=== PATIENT | female | born 1950 | race Caucasian/White ===

== ENCOUNTER 2021-05-12 15:18 | Outpatient (CLI) | payer MEDICARE ==
[~2021-05-12 15:18] MED LIST: BUDE10.2 INH; MONT10TA6 PO; TEMA30CA PO
[2021-05-12] MEDS ORDERED: TAMSULOSIN PO (16:01)
[2021-05-12] MEDS ORDERED: LEVO75TA5 PO (16:01)
[2021-05-12] MEDS ORDERED: ALBU18HF INH (16:01)
[2021-05-12] MEDS ORDERED: BUDE90AE INH (16:01)
[2021-05-12] MEDS ORDERED: SODI1PAC NAS (16:01)
== END 2021-05-12 23:59 | disposition home or self-care (01) ==
LOC: STAR 15:18
PROVIDERS: ATTEND Otolaryngology
DX: Z01.818 Encounter for other preprocedural examination (principal); J32.0 Chronic maxillary sinusitis
CPT/HCPCS: 93005

== ENCOUNTER 2021-05-19 05:49 | Day surgery (SDC) | payer MEDICARE ==
[~2021-05-19] VITALS: Ht 162.6 cm; Wt 54.8 kg
[~2021-05-19 05:49] MED LIST changes: +ALBU18HF INH; +BUDE90AE INH; +LEVO75TA5 PO; +SODI1PAC NAS; +TAMSULOSIN PO
[2021-05-19 06:15] VITALS: BP 109/74
[2021-05-19] MEDS ORDERED: CHLORHEXIDINE 15 ML UDC ONE (06:22)
[2021-05-19] MEDS ORDERED: CHLORHEXIDINE 15 ML UDC PO ONE (06:30)
[2021-05-19] MEDS ORDERED: LACTATED RINGERS 1,000 ML IV SCH (06:30)
[2021-05-19] MEDS ORDERED: FLUORESCEIN SODIUM 500 MG/5 ML ONE (06:39)
[2021-05-19] MEDS ORDERED: EPINEPHRINE TOPICAL SOLN 1 MG/ML, 30ML ONE (06:39)
[2021-05-19] MEDS ORDERED: LIDOCAINE/PF 1%, 30ML ONE (06:39)
[2021-05-19] MEDS ORDERED: EPINEPHRINE 1 MG/ML, 1ML ONE (06:39)
[2021-05-19] MEDS ORDERED: BACITRACIN OINT 500U/GM, 15 GM ONE (06:40)
[2021-05-19] MEDS ORDERED: MIDAZOLAM 1 MG/ML, 2ML ONE (07:05)
[2021-05-19] MEDS ORDERED: FENTANYL PF 250 MCG/5ML ONE (07:05)
[2021-05-19] MEDS ORDERED: LIDOCAINE-MPF 2% ,5ML ONE (07:06)
[2021-05-19] MEDS ORDERED: SODIUM CHLORIDE 0.9% PF 10ML ONE (07:07)
[2021-05-19] MEDS ORDERED: LABETALOL 5MG/ML, 20ML IV PRN (07:30)
[2021-05-19] MEDS ORDERED: EPHEDRINE 50 MG/ML, 1ML IVPush PRN (07:30)
[2021-05-19] MEDS ORDERED: ONDANSETRON 2MG/ML, 2ML IVPush PRN (07:30)
[2021-05-19] MEDS ORDERED: PROMETHAZINE 25 MG/ML, 1ML IVPush PRN (07:30)
[2021-05-19] MEDS ORDERED: ACETAMINOPHEN 325 MG TABLET PO PRN (07:30)
[2021-05-19] MEDS ORDERED: OXYcodone 5 MG/5 ML ORAL.SOL UDC PO PRN (07:30)
[2021-05-19] MEDS ORDERED: FENTANYL PF 100 MCG/2ML IV PRN (07:30)
[2021-05-19] MEDS ORDERED: HYDROmorphone 1 MG/ML, 1ML INJ IVPush PRN (07:30)
[2021-05-19] MEDS ORDERED: hydrALAzine 20 MG/ML, 1ML IV PRN (07:30)
[2021-05-19] MEDS ORDERED: PROPOFOL 10 MG/ML, 20ML ONE (08:03)
[2021-05-19] MEDS ORDERED: ONDANSETRON 2MG/ML, 2ML ONE (08:03)
[2021-05-19] MEDS ORDERED: DEXAMETHASONE 4 MG/ML, 5ML ONE (08:03)
[2021-05-19] MEDS ORDERED: SUCCINYLCHOLINE 20 MG/ML, 10ML ONE (08:03)
[2021-05-19] MEDS ORDERED: KETOROLAC 30 MG/1 ML ONE (08:03)
[2021-05-19] MEDS ORDERED: CEFAZOLIN 1,000 MG ONE (08:03)
[2021-05-19] MEDS ORDERED: EPHEDRINE 50 MG/ML, 1ML ONE (08:04)
[2021-05-19] MEDS ORDERED: GLYCOPYRROLATE 0.2MG/1ML, 5ML ONE ×2 (08:11)
[2021-05-19] MEDS ORDERED: PHENYLEPHRINE 10 MG/ML ONE (08:12)
== END 2021-05-19 11:00 | disposition home or self-care (01) ==
LOC: OUT 05:49
PROVIDERS: ATTEND Otolaryngology
DX: J32.0 Chronic maxillary sinusitis (principal); J34.89 Other specified disorders of nose and nasal sinuses; J31.0 Chronic rhinitis; H90.3 Sensorineural hearing loss, bilateral; J45.909 Unspecified asthma, uncomplicated; E03.9 Hypothyroidism, unspecified; K21.9 Gastro-esophageal reflux disease without esophagitis; Z83.3 Family history of diabetes mellitus; Z80.9 Family history of malignant neoplasm, unspecified
CPT/HCPCS: 31253; 31267; 87070; 87075; 87077; 87186; 87205; 88304; 88342; J0171; J0330; J0690; J1100; J1885; J2250; J2370; J2405; J2704; J3010; J7120